=== PATIENT | female | born 1955 | race Caucasian/White ===

== ENCOUNTER 2020-06-25 06:46 | Observation (INO) | payer OTHER ==
--- OUTSIDE RECORDS SUMMARY | 2020-06-25 06:49 | XMS REPORT | Continuity of Care Document ---
:1955 Author Organization [employer] Care Team Providers Name Role Phone [employer] Unavailable Un available Problems Problem Status Onset Classification Date Comments Sourc e Date Reported PREVENTIVE HEALTH Active 03/24/20 Condition 03/24/2015 [facility] CARE [facility] IBS Active 03/24/20 Condition 03/24/2015 [facility] THORACIC OUTLET Inactive 12/26/19 Condition 03/24/2015 Medical SYNDROME 15 Group EPISTAXIS Inactive 12/11/19 Condition 03/24/2015 [facility] DIZZINESS Inactive 12/11/19 Condition 03/24/2015 [facility] HBP Active 12/11/19 Condition 03/24/2015 [facility] DYSLIPIDEMIA Active 05/04/20 Condition 03/24/2015 Med ical 14 Group PHYSICAL Active 01/10/20 Condition 03/24/2015 [facility] l EXAMINATION 14 Group BIPOLAR AFFECTIVE Active 01/10/20 Condition 03/24/2015 [facility] DISORDER 14 Group UNSPECIFIED Active 01/10/20 Condition 03/24/2015 [facility] ABNORMAL 14 Group MAMMOGRAM UNSPECIFIED Active 01/08/20 Condition 03/24/2015 [facility] HYPOTHYROIDISM 14 Group ASTHMA Active 01/08/20 Condition 03/24/2015 [facility] l 14 Group Medications Medication Details Route Status Patient Ordering Order Source Instructions Provider Date LOSARTAN one time Active POTASSIUM 25 MG daily 015 Medical TAB[facility] Group VALSARTAN-HYDROC one daily No Longer HLOROTHIAZIDE Active 015 Medical 80-12.5 MG TABS Group SYNTHROID TABS 1 tab No Longer daily Active 014 [facility] Group ATORVASTATIN one daily No Longer CALCIUM 10 MG Active 014 [facility] ATORVASTATIN one daily Active CALCIUM 10 MG 014 [facility] SEROQUEL XR 400 1 tablet Active MG [id number] at bedtime 014 [facility] Group PRISTIQ 50 MG 1 taelt Active MH [id number] daily 014 Medical Group WELLBUTRIN SR 2 tablet Active MH 150 MG [id number] daily in 014 Medica l the Group morning KRILL OIL CAPS Active MH 014 Medical Group L-LYSINE TABS Active MH 014 Medical Group ZANTAC 150 1 tabelt Active MH MAXIMUM STRENGTH daily 014 Medical 150 MG TABS Group CENTRUM SILVER Active MH TABS 014 Medical Group WELLBUTRIN SR 2 tablet Active MH 150 MG [id number] daily in 014 [facility] l the Group morning SEROQUEL XR 400 1 tablet Active MH MG [id number] at bedtime 014 [facility] Group WELLBUTRIN SR 2 tablet Active MH 150 MG [id number] daily in 014 Medica l the Group morning LEVOTHYROXINE 1 tablet No Longer MH SODIUM 137 MCG daily Active 014 Medical TABS Group CRESTOR 10 MG 1 tablet No Longer MH TABS daily Active 014 Medical Group ZOLOFT 100 MG 1 tablet No Longer MH TABS daily Active 014 Medical Group ZOLOFT 100 MG 1 tablet No Longer MH TABS daily Active 014 Medical Group LEVOTHYROXINE 1 tablet No Longer MH SODIUM 137 MCG daily Active 014 Medical TABS Group Allergies, Adverse Reactions, Alerts Substance Category Reaction Severity Reaction Status Date Comments S ource type Reported CODEINE Drug CODEINE allergy Medical Group Immunizations Immunization Date Given Site Status Last Updated Comments Yuliya elizalde influenza 08/29/2006 completed [facility] l immunization (Flu Gr oup Vax) has been administered pneumococcal 08/29/2006 completed Med ical immunization Group administered Results Order Name Results Value Reference Date Interpretation Comments Yuliya [facility] Range Chemistry CHOLESTEROL 229 - 199 2014 [facility] Group Chemistry TRIGLYCERIDE 288 - 149 2014 [facility] Chemistry HDL 46 >=61 2014 [facility] Chemistry LDL 125 - 99 2014 [facility] Chemistry SODIUM 141 MEQ/L 135 - 145 2014 [facility] Chemistry POTASSIUM 4.6 MEQ/L 3.5 - 5.1 2014 [facility] Group Chemistry CREATININE 0.8 0.5 - 1.4 2014 [facility] Group Chemistry BUN 9 7 - 22 2014 [facility] Chemistry BUN/CREAT 11 6 - 25 2014 [facility] Chemistry ALBUMIN 3.8 3.5 - 5.0 2014 [facility] Chemistry CALCIUM 9.2 8.5 - 10.5 2014 [facility] Chemistry SGPT (ALT) 70 0 - 65 2014 [facility] Chemistry SGOT (AST) 43 0 - 37 2014 [facility] Chemistry ALK PHOS 115 39 - 136 2014 [facility] Chemistry TSH 4.390 0.360 - 3.740 2014 [facility] Group Hematology HGB 13.1 12.0 - 16.0 2014 [facility] Hematology HCT 38.6 36.0 - 48.0 2014 [facility] Hematology PLATELETS 269 K/CMM 133 - 450 2014 [facility] Chemistry CHOLESTEROL 182 - 199 2013 [facility] Chemistry TRIGLYCERIDE 159 - 149 2013 [facility] Chemistry HDL 50 >=61 2013 [facility] Chemistry CHOLESTEROL 182 - 199 2013 [facility] Chemistry TRIGLYCERIDE 159 - 149 2013 [facility] Chemistry HDL 50 >=61 2013 [facility] Chemistry CHOLESTEROL 182 - 199 2013 [facility] Chemistry CHOLESTEROL 182 - 199 2013 [facility] Chemistry TRIGLYCERIDE 159 - 149 2013 [facility] Chemistry HDL 50 >=61 2013 [facility] Chemistry CHOLESTEROL 182 - 199 2013 [facility] Chemistry TRIGLYCERIDE 159 - 149 2013 [facility] Chemistry HDL 50 >=61 2013 [facility] Chemistry LDL 100 - 99 2013 [facility] Chemistry TRIGLYCERIDE 159 - 149 2013 [facility] Chemistry HDL 50 >=61 2013 [facility] Chemistry LDL 100 - 99 2013 [facility] Chemistry CHOLESTEROL 271 - 199 2013 [facility] Chemistry TRIGLYCERIDE 151 - 149 2013 [facility] Chemistry HDL 46 >=61 2013 [facility] Chemistry CHOLESTEROL 271 - 199 2013 [facility] Chemistry TRIGLYCERIDE 151 - 149 2013 [facility] Chemistry HDL 46 >=61 2013 [facility] Chemistry LDL 195 - 99 2013 [facility] Chemistry SODIUM 138 MEQ/L 135 - 145 2013 [facility] Chemistry POTASSIUM 4.8 MEQ/L 3.5 - 5.1 2013 [facility] Chemistry CREATININE 0.9 0.5 - 1.4 2013 [facility] Chemistry BUN 16 7 - 22 2013 [facility] Chemistry BUN/CREAT 18 6 - 25 2013 [facility] Chemistry ALBUMIN 4.2 3.5 - 5.0 2013 [facility] Group Chemistry CALCIUM 9.7 8.5 - 10.5 2013 [facility] Chemistry SGPT (ALT) 68 0 - 65 2013 [facility] Chemistry CHOLESTEROL 271 - 199 2013 [facility] Chemistry TRIGLYCERIDE 151 - 149 2013 [facility] Chemistry HDL 46 >=61 2013 [facility] Chemistry CHOLESTEROL 271 - 199 2013 [facility] Chemistry TRIGLYCERIDE 151 - 149 2013 [facility] Chemistry HDL 46 >=61 2013 [facility] Chemistry LDL 195 - 99 2013 [facility] Chemistry SODIUM 138 MEQ/L 135 - 145 2013 [facility] Group Chemistry POTASSIUM 4.8 MEQ/L 3.5 - 5.1 2013 [facility] Group Chemistry CREATININE 0.9 0.5 - 1.4 2013 [facility] Chemistry BUN 16 7 - 22 2013 [facility] Chemistry BUN/CREAT 18 6 - 25 2013 [facility] Chemistry ALBUMIN 4.2 3.5 - 5.0 2013 [facility] Chemistry CALCIUM 9.7 8.5 - 10.5 2013 [facility] Chemistry SGPT (ALT) 68 0 - 65 2013 [facility] Chemistry SGOT (AST) 51 0 - 37 2013 [facility] Chemistry ALK PHOS 157 39 - 136 2013 [facility] Chemistry TSH 3.250 0.360 - 3.740 2013 [facility] Chemistry LDL 195 - 99 2013 [facility] Chemistry SODIUM 138 MEQ/L 135 - 145 2013 [facility] Chemistry POTASSIUM 4.8 MEQ/L 3.5 - 5.1 2013 [facility] Chemistry CREATININE 0.9 0.5 - 1.4 2013 [facility] Chemistry SGOT (AST) 51 0 - 37 2013 [facility] Chemistry ALK PHOS 157 39 - 136 2013 [facility] Chemistry TSH 3.250 0.360 - 3.740 2013 [facility] Group Hematology HGB 12.6 12.0 - 16.0 2013 [facility] Group Hematology HCT 38.2 36.0 - 48.0 2013 [facility] Hematology PLATELETS 326 K/CMM 133 - 450 2013 [facility] Hematology HGB 12.6 12.0 - 16.0 2013 [facility] Hematology HCT 38.2 36.0 - 48.0 2013 [facility] Group Hematology PLATELETS 326 K/CMM 133 - 450 2013 Medical Group Intensive Care Specialist PAP SMEAR complete 2012 Medical Group Intensive Care Specialist PAP SMEAR complete 2012 [facility] Group Intensive Care Specialist PAP SMEAR complete 2012 Medical Group Pathology PAP SMEAR complete 2012 Medical Group Intensive Care Specialist PAP SMEAR Done 2007 [facility] Group Intensive Care Specialist PAP SMEAR Done 2007 [facility] Group Intensive Care Specialist PAP SMEAR Done 2007 [facility] Group Pathology PAP SMEAR Done 2007 [facility] Group Pathology Reports No Data Provided for This Section Diagnostic Reports No Data Provided for This Section Consultation Notes No Data Provided for This Section Discharge Summaries No Data Provided for This Section History and Physicals No Data Provided for This Section Vital Signs Vital Sign Value Date Comments Source Height 62.5 03/24/2015 [facility] Weight 200 03/24/2015 [facility] Temperature Oral (F) 97.7 F 03/24/2015 [facility] Heart Rate 68 03/24/2015 [facility] Systolic (mm Hg) 138 03/24/2015 [facility] Group Diastolic (mm Hg) 83 03/24/2015 [facility] Group Height 62.5 12/25/2014 [facility] Weight 198 12/25/2014 [facility] Systolic (mm Hg) 130 12/25/2014 [facility] Group Diastolic (mm Hg) 80 12/25/2014 [facility] Group Height 62.5 12/11/2014 [facility] Weight 198 12/11/2014 [facility] p Temperature Oral (F) 97.9 F 12/11/2014 [facility] Heart Rate 76 12/11/2014 [facility] p Systolic (mm Hg) 148 12/11/2014 [facility] Group Diastolic (mm Hg) 86 12/11/2014 [facility] Group Height 52.5 06/26/2014 [facility] Weight 195 06/26/2014 [facility] p Temperature Oral (F) 98.1 F 06/26/2014 [facility] Heart Rate 86 06/26/2014 [facility] p Systolic (mm Hg) 146 06/26/2014 Medical Group Diastolic (mm Hg) 78 06/26/2014 [facility] Group Height 52.5 01/09/2014 [facility] p Weight 200 01/09/2014 [facility] Gr[facility] p Temperature Oral (F) 96.7 F 01/09/2014 [facility] Heart Rate 80 01/09/2014 [facility] Gr[facility] p Systolic (mm Hg) 126 01/09/2014 Medical Group Diastolic (mm Hg) 78 01/09/2014 Medical Group Encounters Location Location Encounter Encounter Reason Attending ADM DC Stat us Source Details Type Number For Provider Date Date Visit [facility] Report [id number] Juan 01/09 01/09 [facility] 6960 [facility] Lab Report [id number] Juan 06/14 06/14 [facility] - [facility] Office [id number] Juan 06/26 06/26 [facility] Visit 2760 [facility] Lab Report [id number] Juan 06/26 06/26 [facility] 6910 [facility] Office [id number] Juan 12/11 12/11 [facility] Visit 3560 [facility] Office [id number] Juan 12/25 12/25 [facility] Jh Visit 8930 [facility] Office [id number] Juan 03/24 03/24 Jh Visit 0440 [facility] Outpatient [id number] JUAN 05/20 [facility] [place] Outpatient [id number] JUAN 08/30 [facility] Outpatient [id number] JUAN 11/17 [facility] Outpatient [id number] JUAN 11/22 [facility] Outpatient [id number] JUAN 01/26 [facility] Outpatient [id number] JUAN 04/26 [facility] Outpatient [id number] JUAN 04/27 [facility] Outpatient [id number] JUAN 05/12 [facility] Outpatient [id number] JUAN 06/23 [facility] Outpatient [id number] JUAN 07/11 [facility] Outpatient [id number] JUAN 07/13 [place] [facility] [id number] JUAN 10/13 [facility] Outpatient [id number] KAMERON 11/30 [facility] [place] Outpatient [id number] KAMERON 12/04 [facility] Outpatient [id number] JUAN 12/05 [facility] Outpatient [id number] JUAN 06/26 [facility] [place] Outpatient [id number] JUAN 08/01 [facility] [place] Outpatient [id number] JUAN 08/22 [facility] Procedures Procedure Code Date Perfomer Comments Source smoking/tobacco 14 01/09/2014 yes Medica l cessation, patient Group education and counseling colonoscopy 85014 07/20/2013 [facility] mammogram 05656 12/21/2007 [facility] vaginal Pap smear 24969 12/02/2007 Done [facility] results Group Assessment and Plan No Data Provided for This Section Plan of Care No Data Provided for This Section Social History No Data Provided for This Section Family History No Data Provided for This Section Advance Directives No Data Provided for This Section Functional Status No Data Provided for This Section
--- OUTSIDE RECORDS SUMMARY | 2020-06-25 06:50 | XMS REPORT | Continuity of Care Document ---
:1955 Author Organization [facility] t Address [address] [place] [address] Care Team Providers Name Role Phone Daniela Villegas Attending Clinician Fracisco BARNES Attending Clinician Renzo BARNES M Attending Clinician Doctor Unassigned, Name Attending Clinician Unavailable Christian BARNES Attending Clinician Pob1, [facility] Attending Clinician Unavailable Grant BARNES Attending Clinician Gemma HARVEY Attending Clinician Problems Condition Condition Condition Status Onset Resolution Last Treating Co mments Source Name Details Category Date Date Treatment Clinician Date PREVENTIVE Condition Active 2015-03-24 [facility] HEALTH 03-24 10:57:01 l CARE 00:00: [place] PREVENTIVE 00 HEALTH CARE Active 03/24/2015 Condition 5 [facility] IBS Condition Active 2015-03-24 [facility] 6- 10:57:01 l IBS 00:00: [place] 00 Active 03/24/2015 Condition 5 [facility] HBP Condition Active 2015-03-24 Mem [facility] 2- 10:57:01 l HBP 00:00: [place] 00 Active 12/11/2014 Condition [facility] DYSLIPIDEM Condition Active 2015-03-24 [facility] IA 7- 10:57:01 l 00:00: Jh DYSLIPIDEM 00 IA Active 4 Condition 03/24/2015 [facility] PHYSICAL Condition Active 2015-03-24 M emoria EXAMINATIO 01-09 10:57:01 l N PHYSICAL 00:00: [facility] n EXAMINATIO 00 N Active 01/09/2014 Condition [facility] BIPOLAR Condition Active 2015-03-24 Me moria AFFECTIVE 01-09 10:57:01 l DISORDER BIPOLAR 00:00: Jasmin nn AFFECTIVE 00 DISORDER Active 01/09/2014 [facility] UNSPECIFIE Condition Active 2015-03-24 Memoria D ABNORMAL 01-09 10:57:01 l MAMMOGRAM 00:00: Jh UNSPECIFIE 00 D ABNORMAL MAMMOGRAM Active 01/09/2014 [facility] UNSPECIFIE Condition Active 2015-03-24 Memoria D 01-07 10:57:01 l HYPOTHYROI 00:00: [facility] n DISM UNSPECIFIE 00 D HYPOTHYROI DISM Active 01/07/2014 [facility] ASTHMA Condition Active 2015-03-24 Mem oria 01-07 10:57:01 l ASTHMA 00:00: [place] 00 Active 01/07/2014 [facility] History of Past Illness Condition Condition Condition Status Onset Resolution Last Treating Co mments Source Name Details Category Date Date Treatment Clinician Date THORACIC Condition Inactiv 2015-03-24 2015-03-24 Memoria OUTLET e 3- 10:57:01 10:57:01 l SYNDROME THORACIC 00:00: Herm keesha OUTLET 00 SYNDROME Inactive 12/25/2014 [facility] EPISTAXIS Condition Inactiv 2015-03-24 2015-03-24 Memoria e 2-27 10:57:01 10:57:01 l 00:00: [place] EPISTAXIS 00 Inactive 12/11/2014 [facility] DIZZINESS Condition Inactiv 2015-03-24 2015-03-24 Memoria e 2-27 10:57:01 10:57:01 l 00:00: Jh DIZZINESS 00 Inactive 12/11/2014 [facility] Allergies, Adverse Reactions, Alerts Allergy Allergy Status Severity Reaction(s) Onset Inactive Treating Comm ents Source Name Type Date Date Clinician LAURY SCHAEFFER Active Memoria l [place] Medications Ordered Filled Start Stop Current Ordering Indication Dosage Frequency Signature Comments Components Source Medication Medication Date Date Medication? Clinician (SIG) Name Name LOSARTAN 0 Yes one time Memor ia POTASSIUM 6-10 daily l 25 MG TABS 00:00: VALSARTAN-H 0 No one daily M emoria YDROCHLOROT 2-27 l HIAZIDE 00:00: [place] 80-12.5 MG 00 TABS SYNTHROID 2013-0 No 1 tab Memoria TABS 9-12 daily l 00:00: ATORVASTATI 0 No one daily M emoria N CALCIUM 4-02 l 10 MG TABS 00:00: ATORVASTATI 0 Yes one daily M emoria N CALCIUM 4-02 l 10 MG TABS 00:00: SEROQUEL XR 2013-0 Yes 1 tablet Me moria 400 MG 3-28 at bedtime l [id number] 00:00: PRISTIQ 50 2013-0 Yes 1 taelt Theo jared MG 3-28 daily l [id number] 00:00: WELLBUTRIN 2013-0 Yes 2 tablet [facility] SR 150 MG 3-28 daily in l [id number] 00:00: the morning KRILL OIL 2013-0 Yes Memoria CAPS 3-28 l 00:00: L-LYSINE 2013-0 Yes [facility] TABS 3-28 l 00:00: ZANTAC 150 2013-0 Yes 1 tabelt Mem [facility]ria MAXIMUM 3-28 daily l STRENGTH 00:00: Jh 150 MG TABS 00 CENTRUM 2013-0 Yes Memoria SILVER TABS 3-28 l 00:00: WELLBUTRIN 2013-0 Yes 2 tablet Mem [facility] SR 150 MG 3-28 daily in l [id number] 00:00: the morning SEROQUEL XR 2013-0 Yes 1 tablet Me moria 400 MG 3-28 at bedtime l [id number] 00:00: WELLBUTRIN 2013-0 Yes 2 tablet Mem [facility] SR 150 MG 3-28 daily in l [id number] 00:00: the [place] morning LEVOTHYROXI 2013-0 No 1 tablet Me moria NE SODIUM 3-26 daily l 137 MCG 00:00: Jh TABS 00 CRESTOR 10 0 No 1 tablet Mem [facility]ria MG TABS 3-26 daily l 00:00: Jh ZOLOFT 100 2013-0 No 1 tablet Mem [facility]ria MG TABS 3-26 daily l 00:00: [place] ZOLOFT 100 2013-0 No 1 tablet Mem oria MG TABS 3-26 daily l 00:00: Jh LEVOTHYROXI 2013-0 No 1 tablet Me moria NE SODIUM 3-26 daily l 137 MCG 00:00: [place] TABS 00 Vital Signs Vital Name Observation Time Observation Value Comments Source Height 2015-03-24 15:57:01 [facility] Weight 2015-03-24 15:57:01 [facility] Temperature Oral (F) 2015-03-24 15:57:01 97.7 F [facility] [place] Heart Rate 2015-03-24 15:57:01 [facility] Systolic (mm Hg) 2015-03-24 15:57:01 Theo rial [place] Diastolic (mm Hg) 2015-03-24 15:57:01 [facility] Height 2014-12-25 15:47:20 [facility] Weight 2014-12-25 15:47:20 [facility] [place] Systolic (mm Hg) 2014-12-25 15:47:20 Theo rial Jh Diastolic (mm Hg) 2014-12-25 15:47:20 [facility] Height 2014-12-11 16:18:13 [facility] Weight 2014-12-11 16:18:13 [facility] Temperature Oral (F) 2014-12-11 16:18:13 97.9 F [facility] Heart Rate 2014-12-11 16:18:13 [facility] [place] Systolic (mm Hg) 2014-12-11 16:18:13 Theo rial Jh Diastolic (mm Hg) 2014-12-11 16:18:13 [facility] orial [place] Height 2014-06-26 15:14:50 [facility] [place] Weight 2014-06-26 15:14:50 [facility] Temperature Oral (F) 2014-06-26 15:14:50 98.1 F [facility] [place] Heart Rate 2014-06-26 15:14:50 [facility] [place] Systolic (mm Hg) 2014-06-26 15:14:50 Theo rial Jh Diastolic (mm Hg) 2014-06-26 15:14:50 Mem orial Jh Height 2014-01-09 14:51:22 [facility] [place] Weight 2014-01-09 14:51:22 [facility] [place] Temperature Oral (F) 2014-01-09 14:51:22 96.7 F [facility] Heart Rate 2014-01-09 14:51:22 [facility] Systolic (mm Hg) 2014-01-09 14:51:22 Theo rial Jh Diastolic (mm Hg) 2014-01-09 14:51:22 Mem orial Jh Procedures Procedure Date / Time Performed Performing Clinician [facility] na smoking/tobacco 2014-01-09 14:51:22 John daley cessation, patient education and counseling colonoscopy 2013-07-20 15:18:25 John daley mammogram 2007-12-21 20:47:59 John daley vaginal Pap smear results 2007-12-02 20:48:59 Tx moribhavani Peñaloza Encounters Start End Encounter Admission Attending Care Care Encounter Source Date/Time Date/Time Type Type Clinicians Facility Department ID 2020-05-02 2020-05-02 Refill Becky, [facility] [id number] 00:00:00 00:00:00 [facility] [id number] [place] [id number] Professio [phone] [place] [address] [address] 2020-04-30 2020-04-30 Refill Fracisco [facility] [id number] 00:00:00 00:00:00 [facility] [id number] [place] [id number] Professio [phone] nal [facility] Office [address] 2020-04-04 2020-04-04 Refill Renzo [facility] [id number] 00:00:00 00:00:00 , [facility] [id number] [facility] [id number] Professio [phone] [place] [address] [address] 2020-03-25 2020-03-25 Orders Doctor RONAL [id number] 00:00:00 00:00:00 Only Unassigned, HARDIK [id number] [facility] 4.2.7.2.686 [id number] 2020-03-10 2020-03-10 Emergency Gonzales, [facility] [id number] 11:57:53 15:25:00 Chiki [facility] [id number] [place] 4.2.7.2.686 [place] [id number] 2020-02-12 2020-02-12 Telephone Renzo [facility] [id number] 00:00:00 00:00:00 , [facility] [id number] M [place] [id number] Professio [phone] [place] [address] [address] 2020-02-10 2020-02-10 Urgent Pob1, Acute [facility] [id number] 13:02:08 13:22:08 [facility] Health [id number] [place] [id number] Professio [phone] [place] [address] [address] 2020-02-04 2020-02-04 Telephone Burns, [facility] [id number] 00:00:00 00:00:00 Mikey [place] [id number] [place] [id number] Professio [phone] [address] 2019-11-13 2019-11-13 Refill Gemma, [facility] [id number] 00:00:00 00:00:00 [facility] [id number] [place] [id number] Professio [phone] [place] [address] [address] 2019-11-04 2019-11-04 Telephone Becky, [facility] [id number] 00:00:00 00:00:00 Daniela [facility] [id number] [place] [id number] [facility] [phone] [place] [address] [address] Results Test Description Test Time Test Comments Results Result Comments Source Chemistry 2015-03-24 229 [facility] nn 05:00:00 Chemistry 2015-03-24 288 [facility] nn 05:00:00 Chemistry 2015-03-24 46 [facility] nn 05:00:00 Chemistry 2015-03-24 125 [facility] nn 05:00:00 Chemistry 2015-03-24 141 MEQ/L [facility] nn 05:00:00 Chemistry 2015-03-24 4.6 MEQ/L [facility] nn 05:00:00 Chemistry 2015-03-24 0.8 [facility] nn 05:00:00 Chemistry 2015-03-24 9 [facility] nn 05:00:00 Chemistry 2015-03-24 05:00:00 Test Item Value Reference Range Interpretation Comme nts BUN/CREAT (test code = BUN/CREAT) 11 1 04-08 [facility] VuqhewfYxfmsglny6461-46-95 05:00:003.8[facility] 2015-03-24 05:00:009.2[facility] RznfctvEvhtyhafr1424-36-74 05:00:0070[facility] FocncmfDwxtbdedb3192-69-74 05:00:0043[facility] YodyaamUqlptzlbt3293-88-07 05:00:72069Nrrxecef DdkageaUhjfhalsq4651-73-61 05:00:004.390[facility] [place] Cwnbdnlyrb1508-24-61 05:00:0013.1[facility] ZusflgxStpgcyenjw7428-64-27 05:00:00 38.6Memorial MhqqnrhTubdhwirvl0298-74-86 05:00:45110 K/CMMMemorial Jh Xpzaawopq8029-28-26 16:00:07575Dztdsvgu KxinuwqAtqgzqqru1529-58-41 16:00:92189 Memorial CcmcldlRrroiyyih3244-59-45 16:00:0050[facility] 2014-06-26 16:00:91982Rgvtojua TwrmuwvIavpymxgs7867-37-66 16:00:00977Komeqhhz PowdopfDcdyrqoqe8275-12-50 16:00:0050[facility] EadejwoVikmsqoat1681-40-39 16:00:23282Drvtjapf ApzhhmxFyqdljoky1487-58-63 16:00:75887Lltfnayh Jh Frjkfqfah4103-89-74 16:00:41071Welfgenb JrrzbgmCkvhyadgw5965-85-91 16:00:0050 [facility] StdbclpVwsjyitlh0311-87-51 16:00:65289Aoqmbmwd [facility]annChemistry 2014-06-26 16:00:72758Eaiejqnl LcmpvauOkcophalw7043-47-81 16:00:0050[facility] YhdbzmoMuwgwgwby4046-63-77 16:00:28942Xfefwmfs EcaqmthSzfqjalka1243-10-70 16:00:98103Vijmdefc WfpgbhqPzkirizmd5687-99-50 16:00:0050[facility] [place] Vxvorydbi1031-56-61 16:00:03172Kwymooyf KendyojZkmembald7544-49-45 16:00:78973 Memorial EefvqrwRzelmaflj9223-21-65 16:00:64260Tqexnmhx [facility] 2014-01-09 16:00:0046[facility] YqbhpoiVsyarkhty5018-60-93 16:00:64346Hptnjpin JcpaiusZabnhcdvs6294-72-98 16:00:83235Qsrmbtub OumdaezEinyxvkvf5413-70-18 16:00:0046[facility] RlrleooXiogqdfgc7833-39-32 16:00:58755Fbzsyqva Jh Rbjtuuflo5853-21-87 16:00:40234 MEQ/LMemorial WijwpbuHlnyytdwf4257-61-47 16:00:004.8 MEQ/LMemorial PspcuxsEfvszistb0997-11-90 16:00:000.9[facility] [place] Hvlddjhhh5677-97-50 16:00:0016[facility] TmibdmeIhsdnqarj8150-10-95 16:00:00 Test Item Value Reference Range Interpretation Comments BUN/CREAT (test code = BUN/CREAT) 18 1 6 Memorial ZrycexrEostvldro2329-22-40 16:00:004.2[facility] 2014-01-09 16:00:009.7[facility] JybhkxzFenabtwgi0511-75-36 16:00:0068[facility] BbrneevJqyirwtcz1447-23-51 16:00:29053Mjtcazrm EowsgssQtgwocbti4300-53-72 16:00:14626Xugtayie ErpncbgQefitrxzx3484-32-69 16:00:0046[facility] [place] Xxqjzijqx6967-58-73 16:00:30298Upkvzadn OvjmpmeSabqaanhm8982-86-82 16:00:58478 Memorial QlkgabfWejzdfixs5462-07-51 16:00:0046[facility] 2014-01-09 16:00:65814Dnqlwzia OcifiowYykfctzdi2300-02-06 16:00:56419 MEQ/L Memorial VxfxgrnDtvozvmem4235-19-45 16:00:004.8 MEQ/L[facility]annChem[facility] 2014-01-09 16:00:000.9[facility] MqcjzzmOknrlfjzn1823-67-02 16:00:0016[facility] JktoerlQiwosjvds5484-07-14 16:00:00 Test Item Value Reference Range Interpretation Comments BUN/CREAT (test code = BUN/CREAT) 18 1 6-25 Memorial ZhkqaogZpfxlgskc4332-18-67 16:00:004.2[facility] 2014-01-09 16:00:009.7[facility] YtevugoYoggfjngm7454-41-31 16:00:0068[facility] DllagemGrvshoeex7564-83-31 16:00:0051Memorial WawdqbeBpzzvknzy5458-79-80 16:00:27941Lxkyabny VqytychFgkanbpsd0672-27-12 16:00:003.250[facility] [place] Rfstkmdtn4019-78-50 16:00:13519Dvobxnvv QgtsowaKmuakmyto4161-62-39 16:00:35045 MEQ/LMemorial RxqgxgiSogwrqipe4413-26-42 16:00:004.8 MEQ/L[facility] [place] Lmgimhkwx9050-72-80 16:00:000.9[facility]orial VtxvrhgOeemrjpdv9277-12-02 16:00:0051 Memorial MxoavcvQpytbdgam9148-71-96 16:00:45516Jmemhbfa [facility] 2014-01-09 16:00:003.250[facility] LgdtzvjZjojswfvdo7300-69-67 16:00:0012.6 Memorial AegghxoLultuuzxor1844-84-55 16:00:0038.2[facility]annHematology 2014-01-09 16:00:73008 K/CMMMemorial FqzzwsvRkjzjywcgb2437-85-72 16:00:0012.6 Memorial PodfkaiNlphvnkyhc9133-32-84 16:00:0038.2[facility]ann[facility] 2014-01-09 16:00:44227 K/CMMMemorial HermannOb/Fmv0594-57-36 15:19:55complete [facility] HermannOb/Vvr8578-08-68 15:19:55completeMemorial HermannOb/Cafeteria Counter Attendant 2013-03-15 15:19:55completeMemorial VwfxavbBdqtbtsnh1934-91-69 15:19:55complete [facility] HermannOb/Drn8608-92-73 20:48:59DoneMemorial HermannOb/Zub3476-35-05 20:48:59DoneMemorial HermannOb/Qzz8428-44-92 20:48:59DoneMemorial Jh Dqanodxae3811-70-20 20:48:59DoneMemorial Jh
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
--- OUTSIDE RECORDS SUMMARY | 2020-06-25 06:50 | XMS REPORT | Summary of Care ---
:1955 Author Organization [facility] Address [address] [place] [address] Care Team Providers Name Role Phone Harmony Menendez VISUAL INSPECTOR Primary Care Provider Reason for Visit Reason Comments Refill Request Encounter Details Date Type Department Care Team Description 05/02/2020 Refill [facility] Family Medicine Celeste ribera, LEANNA Calderón Refill Request - [address] [place] [address] [place] [address] [phone] Allergies No Known Allergiesdocumented as of this encounter (statuses as of 05/03/2020) Medications Medication Sig Dispensed Refills Start Date [...] 07/11/2019 Active tabletIndications: daily Abdominal cramping, Bloating naproxen 500 mg Take 1 tablet 60 [...] EVERY Acquired DAY IN THE hypothyroidism MORNING ATORVASTATIN 20 mg TAKE ONE 30 tablet 0 05/03/2020 Active tabletIndications: TABLET BY Mixed hyperlipidemia MOUTH AT BEDTIME atorvastatin 20 mg Take 1 tablet 30 tablet 5 09/19/2019 Discontinued tabletIndications: by mouth at 0 Mixed hyperlipidemia bedtime. documented as of this encounter (statuses as of 05/03/2020) Active Problems Problem Noted Date Prediabetes 09/24/2019 HTN (hypertension) 09/11/2018 Obesity (BMI 30-39.9) 06/14/2017 COPD (chronic obstructive pulmonary disease) 6 Bipolar affective disorder 06/10/2008 documented as of this encounter (statuses as of 05/03/2020) Resolved Problems Problem Noted Date Resolved Date Chest pain 09/11/2018 09/24/2019 COPD with exacerbation 06/14/2017 09/24/2019 COPD exacerbation 06/14/2017 09/24/2019 documented as of this encounter (statuses as of 05/03/2020) Immunizations Name Administration Dates Next Due Influenza [...] Description 05/19/2020 Telemedicine Visit Endocrinology Diabetes & BurnsMikey MD Metabolism [address] [place], [place] [address] Health Maintenance Due Date Last Done Comments [...] filedocumented in this encounter Visit Diagnoses Diagnosis Mixed hyperlipidemia documented in this encounter Insurance Payer Benefit Plan / Subscriber ID Effective Phone Address T ype Group Dates MEDICARE MEDICARE PART xxxxxxxxxxx 2018-Pres [phone] Medicare A & B ent [id number] [place] [address] COMMERCIAL COMMERCIAL [id number] 2019-Pres H MO/PPO/POS NON-CONTRACT NON-CONTRACT ent GENERIC GENERIC documented as of this encounter
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
--- OUTSIDE RECORDS SUMMARY | 2020-06-25 06:50 | XMS REPORT | Summary of Care ---
:1955 Author Organization [facility] - Health Address [address] [place] [address] Care Team Providers Name Role Phone Harmony Menendez BLADE WORKER Primary Care Provider Encounter Details Date Type Department Care Team Description 03/25/2020 Orders Only [facility] Unassigned, [facility] [place] [id number] [place] [address] Allergies No Known Allergiesdocumented as of this encounter (statuses as of 04/07/2020) Medications Medication Sig Dispensed Refills Start Date [...] as of this encounter (statuses as of 04/07/2020) Active Problems Problem Noted Date Prediabetes 09/24/2019 HTN (hypertension) 09/11/2018 Obesity (BMI 30-39.9) 06/14/2017 COPD (chronic obstructive pulmonary disease) 6 Bipolar affective disorder 06/10/2008 documented as of this encounter (statuses as of 04/07/2020) Resolved Problems Problem Noted Date Resolved Date Chest pain 09/11/2018 09/24/2019 COPD with exacerbation 06/14/2017 09/24/2019 COPD exacerbation 06/14/2017 09/24/2019 documented as of this encounter (statuses as of 04/07/2020) Immunizations Name Administration Dates Next Due Influenza [...] Telemedicine Visit Endocrinology Diabetes [place] [address] [phone] Health Maintenance Due Date Last Done Comments [...] Completed 09/22/2019 documented as of this encounter Procedures Procedure Name Priority Date/Time Associated Diagnosis Comme nts MEDICATION CORRESPONDENCE Routine 03/25/2020 12:01 AM CDT documented in this encounter Results Not on filedocumented in this encounter Insurance Payer Benefit Plan / Subscriber ID Effective Phone Address T e Group Dates MEDICARE MEDICARE PART xxxxxxxxxxx 2018-Pres [phone] Medicare A & B ent [id number] [place] [phone] COMMERCIAL COMMERCIAL [id number] 2019-Pres H [place]/PPO/POS NON-CONTRACT NON-CONTRACT ent GENERIC GENERIC documented as of this encounter
[2020-06-25] MEDS ORDERED: PANTOPRAZOLE 40 MG INJ ONE (07:26)
[2020-06-25] MEDS ORDERED: ONDANSETRON 4 MG/2 ML VIAL ONE ×3 (07:26→20:24)
[2020-06-25] MEDS ORDERED: MORPHINE 4 MG/ML SYR ONE ×3 (07:26→12:27)
[2020-06-25] MEDS ORDERED: NA CHLORIDE 0.9% 1,000 ML ONE (07:27)
[2020-06-25 07:48] LABS: Absolute Lymphocytes (CBC) 2.6 K/uL (0.7-4.9); Basophils % 1.2 % (0-1.3); Hematocrit 38.6 % (36.0-45.0); Lymphocytes % 31.2 % (15.3-44.8); MPV 8.5 fL (7.6-11.3); RBC Red Blood Cell Count 4.35 M/uL (3.86-4.86)
[2020-06-25 07:55] LABS: Protime INR 1.03
[2020-06-25 08:20] LABS: ALT/SGPT 28 U/L (12-78); AST/SGOT 24 U/L (15-37); Albumin 3.3 g/dL (3.4-5.0); Alkaline Phosphatase 123 U/L (45-117); BUN Blood Urea Nitrogen 8 mg/dL (7-18); Bicarbonate 27 mmol/L (21-32); Bilirubin Direct 0.1 mg/dL (0-0.2); Bilirubin Total 0.4 mg/dL (0.2-1.0); Glucose Level 94 mg/dL (74-106); Lipase 72 U/L (73-393); Magnesium 2.1 mg/dL (1.8-2.4); Potassium 4.1 mmol/L (3.5-5.1); Protein, Total 7.8 g/dL (6.4-8.2); Sodium Level 143 mmol/L (136-145); Troponin I < 0.02 ng/mL (0.0-0.045)
--- NOTE | 2020-06-25 08:24 | RAD REPORT ---
EXAM DESCRIPTION: US - Abdomen Exam Limited - 06/25/2020 7:25 am CLINICAL HISTORY: RUQ/epigastric pain COMPARISON: No comparisons FINDINGS: The gallbladder demonstrates no gallstones. No pericholecystic fluid or gallbladder wall t hickening. The common bile duct is normal measuring 4 mm. The liver demonstrates no findings of intrahepatic biliary dilatation. IMPRESSION: Unremarkable examination.
[2020-06-25] MEDS ORDERED: ONDANSETRON 4 MG/2 ML VIAL IV ONE (08:31)
[2020-06-25] MEDS ORDERED: HYDROMORPHONE HCL 2 MG/ML inj IV ONE ×2 (08:32→08:40)
--- NOTE | 2020-06-25 09:06 | RAD REPORT ---
EXAM DESCRIPTION: RAD - Chest Single View - 06/25/2020 8:47 am CLINICAL HISTORY: upper abdomen pain Chest pain. COMPARISON: Chest Pa And Lat (2 Views) dated 08/01/2017 FINDINGS: Portable technique limits examination quality. The lungs are grossly clear. The heart is normal in size. No displaced fractures. IMPRESSION: No acute intrathoracic process suspected.
--- NOTE | 2020-06-25 09:58 | RAD REPORT ---
EXAM DESCRIPTION: CTAbdomen Pelvis W Contrast - 06/25/2020 9:38 am CLINICAL HISTORY: Abdominal pain. ABD PAIN COMPARISON: No comparisons TECHNIQUE: Biphasic CT imaging of the abdomen and pelvis was performed with 100 ml non-ionic IV cont rast. All CT scans are performed using dose optimization technique as appropriate and may include automated exposure control or mA/KV adjustment according to patient size. FINDINGS: The lung bases are clear. The liver, spleen, pancreas, adrenal glands and kidneys are within normal limits. No bowel obstruction, free air, free fluid or abscess. The appendix appears surgically absent. Mild s igmoid diverticulosis coli without diverticulitis. No evidence of significant lymphadenopathy. Mild lumbosacral degenerative changes. IMPRESSION: No acute intra-abdominal or pelvic finding. Sigmoid diverticulosis coli without diverticulitis.
--- NOTE | 2020-06-25 10:17 | ER ---
Nurse's Notes [facility] Name: Katty Gutierrez Age: 65 yrs Sex: Female : 1955 Arrival Date: 06/25/2020 Time: 06:47 Bed 6 Private MD: Diagnosis: Upper abdominal pain, unspecified-intractable Presentation: 06/25 06:58 Chief complaint: Patient states: I saw yesterday or the day before now, for sg this RUQ pain Nan been having, and some nausea. He instructed me to come to the ER this morning and the provider here would contact him for consult on surgery or not. pt denies fever/chills at this time. Coronavirus screen: Client denies travel out of the [place] in the last 14 days. At this time, the client does not indicate any symptoms associated with coronavirus-19. Ebola Screen: Patient negative for fever greater than or equal to 101.5 degrees Fahrenheit, and additional compatible Ebola Virus Disease symptoms Patient denies exposure to infectious person. Patient denies travel to an Ebola-affected area in the 21 days before illness onset. No symptoms or risks identified at this time. Initial Sepsis Screen: Does the patient meet any 2 criteria? No. Patient's initial sepsis screen is negative. Does the patient have a suspected source of infection? No. Patient's initial sepsis screen is negative. Risk Assessment: Do you want to hurt yourself or someone else? Patient reports no desire to harm self or others. Onset of symptoms was June 23, 2020. Care prior to arrival: None. Transition of care: patient was not received from another setting of care. 06:58 Method Of Arrival: Ambulatory 06:58 Acuity: DENISE 3 sg Historical: - Allergies: 07:01 No Known Allergies; sg - PSHx: 07:01 Appendectomy; wrist; Tonsillectomy; Hysterectomy; sg - Immunization history:: Adult Immunizations up to date. - Social history:: Smoking status: Patient reports the use of cigarette tobacco products, smokes one-half pack cigarettes per day. Screenin:10 Abuse screen: Denies threats or abuse. Denies injuries from another. Nutritional hb screening: No deficits noted. Tuberculosis screening: No symptoms or risk factors identified. Fall Risk None identified. Assessment: 07:10 General: Appears in no apparent distress. Behavior is calm, cooperative. Pain: Pain hb currently is 8 out of 10 on a pain scale. Neuro: Level of Consciousness is awake, alert, obeys commands, Oriented to person, place, time, situation. Cardiovascular: Capillary refill < 3 seconds Patient's skin is warm and dry. Respiratory: Airway is patent Respiratory effort is even, unlabored, Respiratory pattern is regular, symmetrical. GI: Reports upper abdominal pain. : No deficits noted. EENT: No signs and/or symptoms were reported regarding the EENT system. Derm: Skin is pink, warm \T\ dry. Musculoskeletal: No signs and/or symptoms reported regarding the musculoskeletal system. 08:00 Reassessment: Patient appears in no apparent distress at this time. Patient and/or hb family updated on plan of care and expected duration. Pain level reassessed. Patient is alert, oriented x 3, equal unlabored respirations, skin warm/dry/pink. 09:30 Reassessment: Patient appears in no apparent distress at this time. wheeled to [facility] via [facility]. 10:30 Reassessment: Patient appears in no apparent distress at this time. Patient and/or hb family updated on plan of care and expected duration. Pain level reassessed. Patient is alert, oriented x 3, equal unlabored respirations, skin warm/dry/pink. Admission ordered, awaiting OR team. 11:40 Reassessment: Patient appears in no apparent distress at this time. Patient and/or hb family updated on plan of care and expected duration. Pain level reassessed. Patient is alert, oriented x 3, equal unlabored respirations, skin warm/dry/pink. 12:30 Reassessment: Patient appears in no apparent distress at this time. No changes from hb previously documented assessment. Patient and/or family updated on plan of care and expected duration. Pain level reassessed. Patient is alert, oriented x 3, equal unlabored respirations, skin warm/dry/pink. 13:30 Reassessment: Patient appears in no apparent distress at this time. No changes from hb previously documented assessment. Patient and/or family updated on plan of care and expected duration. Pain level reassessed. Patient is alert, oriented x 3, equal unlabored respirations, skin warm/dry/pink. 14:30 Reassessment: Patient appears in no apparent distress at this time. No changes from hb previously documented assessment. Patient and/or family updated on plan of care and expected duration. Pain level reassessed. Patient is alert, oriented x 3, equal unlabored respirations, skin warm/dry/pink. Vital Signs: 07:02 BP 110 / 96; Pulse 88; Resp 16; Temp 97.9; Pulse Ox 100% ; Pain 8/10; hb 09:15 BP 122 / 64; Pulse 64; Resp 14; Pulse Ox 99% ; hb 10:43 BP 116 / 60; Pulse 66; Resp 15; Temp 98.2; Pulse Ox 100% on R/A; hb 11:45 BP 114 / 64; Pulse 65; Resp 15; Pulse Ox 99% on R/A; hb 13:00 BP 118 / 68; Pulse 64; Resp 17; Pulse Ox 98% on R/A; hb 15:00 BP 128 / 62; Pulse 66; Resp 15; Temp 97.8; Pulse Ox 99% ; hb ED Course: 06:47 Patient arrived in ED. ag3 06:50 Yusef Santiago PA is PHCP. cp 06:50 Dick Farah MD is Attending Physician. cp 07:00 Triage completed. sg 07:01 Arm band placed on. EKG completed in triage. Results shown to MD. sg 07:09 Attending Physician role handed off by Dick Farah MD cp 07:09 Lisa Fowler MD is Attending Physician. cp 07:10 Patient has correct armband on for positive identification. Bed in low position. Call hb light in reach. 07:12 Flores Mcduffie, RN is Primary Nurse. hb 07:22 Missed attempt(s): 20 gauge in right antecubital area. Bleeding controlled, band aid hb applied, catheter tip intact. 07:25 US Abdomen Limited In Process Unspecified. EDMS 07:34 Initial lab(s) drawn, by dc, sent to lab. Inserted saline lock: 20 gauge in left dh3 antecubital area, using aseptic technique. Blood collected. 07:50 EKG done, by ED staff, reviewed by Yusef RAM. dh3 08:47 XRAY Chest (1 view) In Process Unspecified. EDMS 09:09 Missed attempt(s): 22 gauge in right antecubital area. Bleeding controlled, band aid ss applied, catheter tip intact. 09:25 Inserted saline lock: 22 gauge in right antecubital area, using aseptic technique. em 09:39 CT Abd/Pelvis - IV Contrast Only In Process Unspecified. EDMS 10:15 Jamari Smith MD is Hospitalizing Provider. cp 15:00 No provider procedures requiring assistance completed. hb 15:00 Patient admitted, IV remains in place. hb Administered Medications: 07:36 Drug: Zofran (Ondansetron) 4 mg Route: IVP; Site: left antecubital; hb 08:00 Follow up: Response: No adverse reaction hb 07:36 Drug: ProTONIX 40 mg Route: IVP; Site: left antecubital; hb 08:00 Follow up: Response: No adverse reaction hb 07:36 Drug: morphine 4 mg Route: IVP; Site: left antecubital; hb 08:00 Follow up: Response: No adverse reaction hb 07:36 Drug: NS 0.9% 500 ml Route: IV; Rate: bolus; Site: left antecubital; hb 08:00 Follow up: Response: No adverse reaction; IV Status: Completed infusion; IV Intake: hb 500ml 08:02 Drug: NS 0.9% 500 ml Route: IV; Rate: 125 ml/hr; Site: left antecubital; hb 09:28 Drug: morphine 4 mg Route: IVP; Site: right antecubital; em 09:50 Follow up: Response: No adverse reaction hb 12:15 Drug: morphine 4 mg Route: IVP; Site: right antecubital; hb 12:39 Follow up: Response: No adverse reaction hb 13:55 Drug: Dilaudid 0.5 mg Route: IVP; Site: right antecubital; em 14:35 Follow up: Response: No adverse reaction hb Intake: 08:00 IV: 500ml; Total: 500ml. hb Outcome: 10:16 Decision to Hospitalize by Provider. cp 15:00 Condition: stable hb 15:00 Admitted to Tele accompanied by tech, room 430, Report called to Raimundo THOMPSON hb 15:19 Patient left the ED. hb Signatures: Dispatcher [employer] EDMS Preston Moya RN RN Cullen Mejia RN RN Nona Cummins RN RN ss Page, Corey, PA PA cp Flores Mcduffie RN RN Sol Smith dh3 Lakisha Brown 3 Corrections: (The following items were deleted from the chart) 16: 14:26 Pt removed his PIV, bleeding controlled. hb hb : 15:00 Transferred by ground EMS Note: [place] hb hb : 15:00 Instructed on the need for transfer, hb hb
--- NOTE | 2020-06-25 10:17 | EDPHYS ---
Physician Documentation [facility] Name: Katty Gutierrez Age: 65 yrs Sex: Female : 1955 Arrival Date: 06/25/2020 Time: 06:47 Bed 6 Private MD: ED Physician Lisa Fowler HPI: 06/25 07:10 This 65 yrs old Female presents to ER via Ambulatory with complaints of Right cp Upper Abdomen Pain. 07:10 The patient presents with abdominal pain in the right upper quadrant. cp 07:10 Onset: The symptoms/episode began/occurred 5 day(s) ago. The symptoms radiate to neck. cp Associated signs and symptoms: Pertinent positives: nausea, Pertinent negatives: constipation, diarrhea, fever, vomiting. Modifying factors: the symptoms are aggravated by food. Severity of pain: in the emergency department the pain is unchanged despite home interventions. Historical: - Allergies: 07:01 No Known Allergies; sg - PSHx: 07:01 Appendectomy; wrist; Tonsillectomy; Hysterectomy; sg - Immunization history:: Adult Immunizations up to date. - Social history:: Smoking status: Patient reports the use of cigarette tobacco products, smokes one-half pack cigarettes per day. ROS: 07:19 Eyes: Negative for injury, pain, redness, and discharge. cp 07:19 Constitutional: Negative for body aches, chills, fever, poor PO intake. 07:19 ENT: Negative for sore throat, difficulty swallowing, difficulty handling secretions. 07:19 Neck: Positive for pain at rest. 07:19 Cardiovascular: Negative for chest pain, edema, palpitations. 07:19 Respiratory: Negative for cough, shortness of breath, wheezing. 07:19 Abdomen/GI: Positive for abdominal pain, nausea, Negative for vomiting, diarrhea, constipation, black/tarry stool, rectal bleeding. 07:19 Back: Negative for radiated pain. 07:19 : Negative for urinary symptoms, hematuria. 07:19 Skin: Negative for rash. 07:19 Neuro: Negative for altered mental status, headache, weakness. 07:19 All other systems are negative. Exam: 07:20 Head/Face: Normocephalic, atraumatic. cp 07:20 Constitutional: The patient appears in no acute distress, alert, awake, non-diaphoretic, non-toxic, well developed, well nourished, uncomfortable. 07:20 Eyes: Periorbital structures: appear normal, Conjunctiva: normal, no exudate, no cp injection, Sclera: no appreciated abnormality, Lids and lashes: appear normal, bilaterally. 07:20 ENT: External ear(s): are unremarkable, Nose: is normal, Mouth: Lips: moist, Oral mucosa: moist, Posterior pharynx: Airway: no evidence of obstruction, patent. 07:20 Chest/axilla: Inspection: normal, Palpation: is normal, no crepitus, no tenderness. 07:20 Cardiovascular: Rate: normal, Rhythm: regular, Edema: is not appreciated, JVD: is not appreciated. 07:20 Respiratory: the patient does not display signs of respiratory distress, Respirations: normal, no use of accessory muscles, no retractions, labored breathing, is not present, Breath sounds: are clear throughout, no decreased breath sounds. 07:20 Abdomen/GI: Inspection: abdomen appears normal, Bowel sounds: active, all quadrants, Palpation: soft, in all quadrants, severe abdominal tenderness, in the posterior aspect of right lateral abdomen, anterior aspect of right lateral abdomen and right upper quadrant, rebound tenderness, is not appreciated, voluntary guarding, is elicited in the posterior aspect of right lateral abdomen, anterior aspect of right lateral abdomen and right upper quadrant. 07:20 Back: pain, that is moderate, of the right mid back, ROM is normal. 07:20 Skin: no rash present. 07:50 ECG was reviewed by the Attending Physician. cp Vital Signs: 07:02 BP 110 / 96; Pulse 88; Resp 16; Temp 97.9; Pulse Ox 100% ; Pain 8/10; hb 09:15 BP 122 / 64; Pulse 64; Resp 14; Pulse Ox 99% ; hb 10:43 BP 116 / 60; Pulse 66; Resp 15; Temp 98.2; Pulse Ox 100% on R/A; hb 11:45 BP 114 / 64; Pulse 65; Resp 15; Pulse Ox 99% on R/A; hb 13:00 BP 118 / 68; Pulse 64; Resp 17; Pulse Ox 98% on R/A; hb 15:00 BP 128 / 62; Pulse 66; Resp 15; Temp 97.8; Pulse Ox 99% ; hb MDM: 07:04 Patient medically screened. cp 08:00 Differential diagnosis: cholecystitis, Cholelithiasis, gastritis, pancreatitis, Peptic cp Ulcer Disease, Perf. Duodenal Ulcer, Pyelonephritis, Ureterolithiasis, urinary tract infection, acute [place]. 08:38 Physician consultation: Jamari Smith MD was called at 09:35, was contacted at 08:35, cp regarding patient's condition, would like further tests performed, CT scan. 10:15 Data reviewed: vital signs, nurses notes, lab test result(s), EKG, radiologic studies, cp CT scan, ultrasound. 10:15 Test interpretation: by ED physician or midlevel provider: ECG. Response to treatment: cp the patient's symptoms have mildly improved after treatment. 10:15 Physician consultation: Jamari Smith MD was called at 10:10, was contacted at 10:10, cp regarding patient's condition, wants patient admitted due to concern patient's pain and symptoms are due to gallbladder disease and will see patient in ED. 06/25 07:07 Order name: Basic Metabolic Panel; Complete Time: 08:31 cp 06/25 07:07 Order name: CBC with Diff; Complete Time: 07:52 cp 06/25 07:52 Interpretation: Reviewed. cp 06/25 07:07 Order name: Hepatic Function; Complete Time: 08:31 cp 06/25 07:07 Order name: Lipase; Complete Time: 08:31 cp 06/25 10:12 Interpretation: Reviewed. cp 06/25 07:07 Order name: Troponin I; Complete Time: 08:31 cp 06/25 07:07 Order name: PT-INR; Complete Time: 08:31 cp 06/25 07:07 Order name: Ptt, Activated; Complete Time: 08:31 cp 06/25 07:07 Order name: Magnesium; Complete Time: 08:31 cp 06/25 13:55 Order name: Basic Metabolic Panel EDMS 06/25 13:55 Order name: Basic Metabolic Panel EDMS 06/25 13:55 Order name: CBC with Automated Diff EDMS 06/25 13:55 Order name: CBC with Automated Diff EDMS 06/25 13:55 Order name: Lipase EDMS 06/25 13:55 Order name: Lipase EDMS 06/25 07:07 Order name: US Abdomen Limited; Complete Time: 08:31 cp 06/25 07:07 Order name: EKG; Complete Time: 07:08 cp 06/25 07:07 Order name: XRAY Chest (1 view); Complete Time: 09:54 06/25 09:54 Interpretation: Report review. 06/25 08:35 Order name: CT Abd/Pelvis - IV Contrast Only; Complete Time: 10:02 cp 06/25 13:54 Order name: NPO EDIA 06/25 13:54 Order name: NPO EDIA 06/25 13:55 Order name: Liver (Hepatic) Function EDIA 06/25 13:55 Order name: Liver (Hepatic) Function EDIA 06/25 07:07 Order name: IV Saline Lock; Complete Time: 07:40 cp 06/25 07:07 Order name: Labs collected and sent; Complete Time: 07:40 06/25 07:07 Order name: EKG - Nurse/Tech; Complete Time: 07:50 cp 06/25 07:07 Order name: NPO; Complete Time: 07:41 cp EC:50 Rate is 61 beats/min. Rhythm is regular. KS interval is normal. QRS interval is normal. cp QT interval is normal. T waves are Flattened in leads I, aVL. Interpreted by me. Reviewed by me. Administered Medications: 07:36 Drug: Zofran (Ondansetron) 4 mg Route: IVP; Site: left antecubital; hb 08:00 Follow up: Response: No adverse reaction hb 07:36 Drug: ProTONIX 40 mg Route: IVP; Site: left antecubital; hb 08:00 Follow up: Response: No adverse reaction hb 07:36 Drug: morphine 4 mg Route: IVP; Site: left antecubital; hb 08:00 Follow up: Response: No adverse reaction hb 07:36 Drug: NS 0.9% 500 ml Route: IV; Rate: bolus; Site: left antecubital; hb 08:00 Follow up: Response: No adverse reaction; IV Status: Completed infusion; IV Intake: hb 500ml 08:02 Drug: NS 0.9% 500 ml Route: IV; Rate: 125 ml/hr; Site: left antecubital; hb 09:28 Drug: morphine 4 mg Route: IVP; Site: right antecubital; em 09:50 Follow up: Response: No adverse reaction hb 12:15 Drug: morphine 4 mg Route: IVP; Site: right antecubital; hb 12:39 Follow up: Response: No adverse reaction hb 13:55 Drug: Dilaudid 0.5 mg Route: IVP; Site: right antecubital; em 14:35 Follow up: Response: No adverse reaction hb Disposition: 16:17 Co-signature as Attending Physician, Lisa Fowler MD. ma2 Disposition: 06/25/20 10:16 Hospitalization ordered by Jamari Smith for Observation. Preliminary diagnosis is Upper abdominal pain, unspecified - intractable. - Bed requested for Telemetry/MedSurg (observation). - Status is Observation. hb - Condition is Stable. - Problem is new. - Symptoms have improved. Signatures: Dispatcher [employer] Salome Paris RN Preston Shields RN RN sg Munoz, Edgar, RN RN em Smirch, Shelby, RN RN ss Yusef Santiago PA PA Flores Romero RN RN hb Alzahri, Mohammad, MD MD ma2 Corrections: (The following items were deleted from the chart) 13:55 10:16 Hospitalization Ordered by Jamari Smith MD for Inpatient Admission. Preliminary cp diagnosis is Upper abdominal pain, unspecified - intractable. Bed requested for Operating Room. Status is Inpatient Admission. Condition is Stable. Problem is new. Symptoms have improved. cp 14:33 13:55 06/25/2020 10:16 Hospitalization Ordered by Jamari Smith MD for Observation. sv Preliminary diagnosis is Upper abdominal pain, unspecified - intractable. Bed requested for Operating Room. Status is Observation. Condition is Stable. Problem is new. Symptoms have improved. cp 15:19 14:33 06/25/2020 10:16 Hospitalization Ordered by Jamari Smith MD for Observation. hb Preliminary diagnosis is Upper abdominal pain, unspecified - intractable. Bed requested for Telemetry/MedSurg (observation). Status is Observation. Condition is Stable. Problem is new. Symptoms have improved. sv
[2020-06-25] MEDS ORDERED: MORPHINE 4 MG/ML SYR IV PRN ×2 (13:51→20:37)
[2020-06-25] MEDS ORDERED: ONDANSETRON 4 MG/2 ML VIAL IV PRN (13:51)
[2020-06-25] MEDS ORDERED: NA CHLORIDE 0.9% 1,000 ML IV SCH (14:00)
[2020-06-25] MEDS ORDERED: HYDROMORPHONE HCL 0.5 MG/0.5 ML INJ ONE (14:00)
[2020-06-25] MEDS ORDERED: D5 0.45 NS 1,000 ML IV SCH (14:00)
[2020-06-25 15:31] VITALS: BMI 34.7
--- NOTE | 2020-06-25 18:10 | P.HP ---
Date of Service: 06/25/20 PC: This 65-year-old female presents to the emergency room with severe right upper quadrant abdominal pain for diagnosis and treatment. HPC: Patient see me earlier this week, was being investigated for right upper quadrant abdominal pain. Last night her pain became very severe after she ate. It is located in the right upper quadrant, radiating straight into her back. Says the pain has been intensified over the last few weeks and having episodes are becoming more severe. Describes it as a pressure up underneath her right ribcage. Has been going on off and on for years, particularly after she eats fatty foods. PMH: Negative PSHx: Previous hysterectomy for endometriosis. Dheeraj olivo. SOC: No known allergies SYS REVIEW: No cough, wheeze, shortness of breath. No chest pain or palpitations. Denies any urinary complaints O/E awake alert vital signs are stable HEENT: Not jaundiced Chest: Air entry is equal bilaterally ABD: Very tender in the right upper quadrant. Positive Obrien's sign LOCO: Intact DATA: White cell count is normal, has unimpressive CT scan and ultrasound. However the patient clinically has pain out of proportion to examination. IMPRESSION: Acute abdomen, possible biliary colic PLAN: I have discussed the findings with the patient. I will take her the operating room for exploratory laparoscopy. At that time we will view were gallbladder and if GB remove it. The risks of the procedure have been discussed. The possibility of bleeding, infection, injury to bile ducts blood vessels intestines has been described. The possible need for an open and/or further surgeries and procedures was discussed. The fact she may still have ongoing pain after the procedure and may need further investigations was outlined. She understands and wants to proceed.
[2020-06-25] MEDS ORDERED: Ringers Lactate 1,000 ML IV ONE (18:44)
[2020-06-25] MEDS ORDERED: LIDOCAINE 2% MPF 5 ML VIAL ONE (18:54)
[2020-06-25] MEDS ORDERED: propofoL 200 MG/20 ML VIAL IV ONE (18:54)
[2020-06-25] MEDS ORDERED: ROCURONIUM 50 MG/5 ML VIAL IV ONE (18:55)
[2020-06-25] MEDS ORDERED: dexAMETHasone 10 MG/ML VIAL ONE (18:55)
[2020-06-25] MEDS ORDERED: KETOROLAC 30 MG/ML INJ ONE (18:56)
[2020-06-25] MEDS ORDERED: CEFOXITIN/SWI 1gm 1 GM/10 ML SYR ONE (19:01)
[2020-06-25] MEDS ORDERED: FENTANYL CITR 100 MCG/2 ML ONE (19:23)
[2020-06-25] MEDS ORDERED: EPHEDRINE SULF 50 MG/ML VIAL ONE (19:25)
[2020-06-25] MEDS ORDERED: GLYCOPYRROLATE 0.2 MG/ML SYR ONE ×2 (19:34→19:55)
[2020-06-25] MEDS ORDERED: Phenylephrine HCl 10 MG/ML 1 ML VIAL ONE (19:51)
--- NOTE | 2020-06-25 20:17 | P.OP ---
Preoperative diagnosis: Acute abdomen Postoperative diagnosis: Chronic cholecystitis Primary procedure: Laparoscopic cholecystectomy Secondary procedure: Liver biopsy Other procedure(s): Cholangiogram Anesthesia: General Estimated blood loss: Less than 10 cc Specimen: 1 gallbladder and liver biopsies Operative Technique: The patient brought the operating room and placed supine on the table. After the induction of adequate general endotracheal anesthesia, there the abdomen is prepped with a DuraPrep solution, and she was draped in usual aseptic manner. A subumbilical incision was made. This was brought down through the skin and subcutaneous tissue. The Visiport was used to enter the peritoneal cavity and created pneumoperitoneum to approximately 12 mm of mercury. Under direct vision a 5 mm trocar was placed in the upper midline, and 2 other 5 mm trocars on the right lateral side of the abdomen. We were now able to visualize the intraperitoneal contents. We could see the liver in the right upper quadrant. There was omentum adherent to the serosal surface of the gallbladder. These adhesions were taken down using blunt sharp dissection. The gallbladder was now grasped. And another 1 was placed down by Vj's pouch we were able to dissect out a somewhat distended and chronically inflamed gallbladder. The cystic duct and artery were cleared. Having obtained a critical view a clip was placed between the gallbladder and the cystic duct. An opening was made into the cystic duct. The bile came out was very thick dark and viscus. The cholangiocatheter was now advanced down through the cystic duct. We went well into the common bile duct. It passed easily. Our cholangiogram demonstrated good flow contrast into the duodenum, we could see the upper radicals, and contrast extruded from the cystic duct. The catheter was now removed. Clips were placed on the distal portion of the cystic duct which was then fully transected. Another clip was placed on the cystic artery which was then divided. The gallbladder was now dissected free from the liver bed, placed into the Endo- Catch, and brought out through the umbilical trocar site. On further inspection of the liver appeared to be have a somewhat nodular appearance. 2 liver biopsies were obtained from the right lower lobe of the liver. These were sent also for histopathology. The biopsy sites were inspected to ensure adequate hemostasis. This was ensured with gentle use of electro cautery. At this point the irrigating fluid was aspirated from the peritoneal cavity. This pus was placed into the Endo-Catch and brought out through the umbilical trocar site. The umbilical trocar site was now approximated using the Endo Close an absorbable suture. The pneumoperitoneum was collapsed, the trocars removed, and jaylene were applied to the skin. The patient also had a skin tag on the upper lateral part of the right chest wall. This was excised using a level blade flush with the skin. The base was then cauterized with electro cautery to ensure adequate hemostasis At the end of the procedure she was in a stable condition when sent to the recovery room. Needle sponge instrument count were correct. No drains were placed. Complications: None Transferred to: Recovery Room Condition: Good
[2020-06-25] MEDS ORDERED: HYDROMORPHONE HCL 2 MG/ML inj ONE (20:25)
--- NOTE | 2020-06-25 21:06 | RAD REPORT ---
EXAM DESCRIPTION: RADCholangiogram Oper-Xray Or06/25/2020 8:54 pm CLINICAL HISTORY: Abdominal pain FINDINGS: The examination was performed by Dr. Smith. Please refer to his report for findings Fluoroscopy time 0.2 minutes. No fluoroscopic spot images obtained
[2020-06-25] MEDS: HYDROCODONE/APAP 7.5/325 MG TAB PO PRN (21:23)
[2020-06-26] MEDS: TRAZODONE 50 MG TABLET PO SCH ×2 (00:14→21:39)
[2020-06-26] MEDS: MORPHINE 4 MG/ML SYR IV PRN ×4 (00:15→20:33)
[2020-06-26] MEDS: Ringers Lactate 1,000 ML IV SCH ×6 (01:13→21:00)
[2020-06-26] MEDS: HYDROCODONE/APAP 7.5/325 MG TAB PO PRN ×2 (09:42→15:17)
[2020-06-26] MEDS ORDERED: QUETIAPINE 25 MG TAB PO SCH (21:00)
[2020-06-27] MEDS: HYDROCODONE/APAP 7.5/325 MG TAB PO PRN (04:53)
[2020-06-27] MEDS: Ringers Lactate 1,000 ML IV SCH (05:00)
[2020-06-27 09:21] VITALS: O2SAT 93
[2020-06-27 09:46] VITALS: BP 122/55; TEMP 97.5
--- NOTE | 2020-06-27 09:49 | EKG ---
Test Date: 2020-06-25 Test Time: 07:46:54 Early Morning: DEVANTE MEASUREMENT RESULTS: Intervals: Rate: 61 AK: 168 QRSD: 92 QT: 448 QTc: 450 [place]: P: 52 AK: 168 QRS: 79 T: 75 INTERPRETIVE STATEMENTS: Normal sinus rhythm Nonspecific T wave abnormality Abnormal ECG No previous ECG available for comparison Electronically Signed On 06-27-20 09:44:54 CDT by Shay Horner
== END 2020-06-27 09:48 | disposition home or self-care (01) ==
LOC: ER 06:46 → ERHOLD 13:54 → 4TH 14:53
PROVIDERS: ADMIT Surgery; ATTEND Surgery
PROC: BF03YZZ Plain Radiography of Gallbladder and Bile Ducts using Other Contrast (ICD-10-PCS; 2020-06-25)
PROC: 0FB14ZX Excision of Right Lobe Liver, Percutaneous Endoscopic Approach, Diagnostic (ICD-10-PCS; 2020-06-25)
PROC: 0HB5XZZ Excision of Chest Skin, External Approach (ICD-10-PCS; 2020-06-25)
PROC: 0FT44ZZ Resection of Gallbladder, Percutaneous Endoscopic Approach (ICD-10-PCS; principal; 2020-06-25 17:30)
DX: K81.1 Chronic cholecystitis (principal); K73.9 Chronic hepatitis, unspecified; K76.0 Fatty (change of) liver, not elsewhere classified; Z20.828 Contact with and (suspected) exposure to other viral communicable diseases; F17.210 Nicotine dependence, cigarettes, uncomplicated
CPT/HCPCS: 93005; 85025; 80048; 36415; 83735; 88313; 85610; 80076; 88304; 88307; 85730; 84484; 83690; 74177; 74300; 71045; 76705; 99285; 47563; 47379; 11200; U0002; Q9967; J2704; J2370; C9113; J1170 ×4; J3010; J1100; J7799; J7120 ×4; J7030; J2405 ×4; G0378 ×4